=== PATIENT | female | born 1965 | race Caucasian/White ===

== ENCOUNTER 2022-11-05 12:09 | Emergency (ER) | payer OTHER ==
[2022-11-05 13:05] LABS: #Basophils 0.1 10x3/uL (0.0-0.2); #Eosinphils 0.2 10x3/uL (0.0-0.5); #Monocytes 0.6 10x3/uL (0.0-1.1); %Basophils 1.2 % (0.0-2.0); %Eosinophils 2.7 % (0.0-6.0); %Lymphocytes 34.3 % (18.0-47.0); %Monocytes 7.8 % (0.0-10.0); %Neutrophils 53.5 % (40.0-75.0); Hemoglobin 13.3 g/dL (12.0-15.5); Mean Corpuscular HGB CONC 32.3 g/dL (32.0-36.0); Mean Corpuscular Hemoglobin 29.5 pg (27.0-33.0); Mean Corpuscular Volume 91.4 fl (81.6-98.3); Mean Platelet Volume 10.1 fl (7.4-10.4); Platelet Count 227 10x3/uL (150-450); RBC Distribution Width 13.2 % (11.5-14.5); Red Blood Cell (RBC) Count 4.51 10x6/uL (3.90-5.03); White Blood Cell (WBC) Count 7.5 10x3/uL (3.5-10.5)
[2022-11-05 13:11] LABS: Bilirubin Neg (Negative); Blood, Urine Negative (Negative); Clarity Clear (Clear); Glucose, Urine (Dipstick) Normal (Negative); Ketone, Urine Negative (Negative); Leukocyte Negative (Negative); Nitrite Negative (Negative); Protein, Urine (Dipstick) Negative (Neg-Trace); Urobilinogen Normal mg/dL (Less than 2)
[2022-11-05 13:21] LABS: ALT (SGPT) 15 U/L (8-55); AST (SGOT) 20 U/L (5-34); Albumin 3.9 g/dL (3.5-5.0); Alkaline Phosphatase 72 U/L (40-110); Anion Gap 11 mmol/L (10-20); BUN (Urea Nitrogen) 9 mg/dL (9.8-20.1); Bilirubin, Total 0.2 mg/dL (0.2-1.2); Calc. Creatinine Clearance 0 mL/min (70-130); Calcium 9.4 mg/dL (7.8-10.44); Carbon Dioxide 31 mmol/L (22-29); Chloride 103 mmol/L (98-107); Estimated GFR 79; Globulin 2.6 g/dL (2.4-3.5); Glucose 90 mg/dL (70-105); Potassium 4.4 mmol/L (3.5-5.1); Protein, Total 6.5 g/dL (6.0-8.3); Sodium 141 mmol/L (136-145)
[2022-11-05] MEDS ORDERED: Iopamidol 300 61% 100 ML VIAL FS ONE (13:59)
[2022-11-05] MEDS ORDERED: Morphine 4 MG/ML VIAL ONE (14:23)
[2022-11-05] MEDS ORDERED: Ondansetron ODT 4 MG TAB ONE (15:58)
== END 2022-11-05 15:58 | disposition home or self-care (01) ==
LOC: CSHERS 12:09
DX: M54.50 Low back pain, unspecified (principal); M79.7 Fibromyalgia; G90.59 Complex regional pain syndrome I of other specified site
CPT/HCPCS: 74177; 80053; 81003; 83605; 85025; 87086; 96372; J2270; Q0162; Q9967

== ENCOUNTER 2023-02-26 10:13 | Outpatient (CLI) | payer OTHER, MEDICAID | END 2023-02-26 10:14 | disposition home or self-care (01) | LOC: CSHRAD 10:13 | PROVIDERS: ATTEND Psychiatry & Neurology Neurology | DX: R53.1 Weakness (principal); M47.812 Spondylosis without myelopathy or radiculopathy, cervical region | CPT/HCPCS: 72040 ==